=== PATIENT | male | born 1965 | race Two or more races ===

== ENCOUNTER → 2017-01-04 | Day surgery (SDC) | payer OTHER ==
[~2017-01-04] MED LIST: COZAAR; HYDROCHLOROTH12.5 M1 PO
--- NOTE | ~2017-01-04 | OR ---
Unit #: [id number]: [id number] Patient: LANE LONDONO [id number] [address] [address] [id number] MR#: [id number] NAME: LANE LONDONO ROOM: Date of Procedure: 01/04/2017 Admission Date: 01/04/2017 Surgeon: Ozzie Mahan M.D. : 1965 Attending Physician: Ozzie Mahan M.D. Referring Physician: Ozzie Mahan M.D. Primary Care Physician: Silvano Aiken Aprn OPERATIVE REPORT PROCEDURE PERFORMED Colonoscopy with biopsies. Colonoscopy with snare polypectomy. INDICATIONS FOR PROCEDURE A 51-year-old gentleman with 15-year history of ulcerative colitis undergoing colonoscopy for surveillance. MEDICATIONS Monitored anesthesia. POSTOPERATIVE FINDINGS 1. Colonoscopy completed to cecum. No active colitis was seen. 2. Random biopsies were taken from 4 quadrants every 10 cm and sent as right and left-sided colonic biopsies. 3. Three polyps, one in ascending colon, one in descending, one in sigmoid, all were 5 to 6 mm in size, snared and sent separately for histopathology. PLAN 1. Follow up on the pathology report. 2. Repeat colonoscopy in 2 years. DESCRIPTION OF PROCEDURE The patient was explained of the procedure, risks, and benefits along with risks and benefits of anesthesia. He was brought to the endoscopy room. Propofol anesthesia was given. Rectal exam was done, which was normal. Colonoscope was lubricated, passed up the rectum, advanced under direct vision all the way to the cecum. Cecum was identified by ileocecal valve and appendiceal orifice. Terminal ileum was normal. Colonic mucosa shows no active colitis. Random biopsies were taken as described. Three polyps were seen, was snared and sent for histopathology. I retroflexed in the rectum, small hemorrhoids seen. Scope was gently pulled out. He tolerated it well. Dictated by... Pedro Alba/debo TD: 01/05/2017 01:13 Unit #: [id number] #: [id number] Patient: LANE LONDONO JOB #: [id number] OPERATIVE REPORT Page 1 of 1 X Ozzie Mahan MD PROCEDURE OPERATIVE NOTE
== END | disposition home or self-care (01) ==
LOC: COPS 08:53
DX: Z12.11 Encounter for screening for malignant neoplasm of colon (principal); D12.2 Benign neoplasm of ascending colon; D12.4 Benign neoplasm of descending colon; D12.5 Benign neoplasm of sigmoid colon
CPT/HCPCS: 88305; J2250